=== PATIENT | female | born 1975 | race Caucasian/White ===

== ENCOUNTER 2023-10-21 16:51 | Emergency (ER) | payer SELFPAY ==
[~2023-10-21] VITALS: Ht 160 cm; Wt 65.8 kg
[2023-10-21 17:01] VITALS: BP 137/84; PULSE 88; RESP 15; TEMP 97.8; O2SAT 99
[2023-10-21] MEDS ORDERED: TETRACAINE HCL/PF 0.5% OPTH 4 ML BTL OP ONE (17:10)
[2023-10-21] MEDS ORDERED: FLUORESCEIN OPTH STRIP 1 MG OP ONE (17:10)
[2023-10-21] MEDS ORDERED: HYDROcodone/APAP 5/325 MG 1 TAB TAB PO ONE (17:35)
[2023-10-21] MEDS ORDERED: ONDANSETRON 4 MG ODT PO ONE (17:35)
[2023-10-21] MEDS ORDERED: CILOS OP (19:54)
== END 2023-10-21 20:00 | disposition left against medical advice (07) ==
LOC: MED 16:51
DX: T15.01XA Foreign body in cornea, right eye, initial encounter (principal); Z79.2 Long term (current) use of antibiotics; X58.XXXA Exposure to other specified factors, initial encounter; Y92.89 Other specified places as the place of occurrence of the external cause; Y93.89 Activity, other specified; Y99.8 Other external cause status
CPT/HCPCS: 99283